=== PATIENT | female | born 1975 | race Caucasian/White ===

== ENCOUNTER → 2016-06-11 | Outpatient (CLI) | payer OTHER ==
[2015-02-20 04:26] VITALS: BP 98/55
[~2016-06-11] MED LIST: ACET500T33 PO; AMIT50TA PO; BUDE10.2 IH; CALC667C6 PO; GABA-586 PO; HYDR-2762 PO; HYDR4DIS IJ; HYDR4TAB PO; METO100T11 PO; MIRT15TA3 PO; OMEP20CA5 PO; PROAIR HFA8.5 GM IH; PSEU120T58 PO; ROPI0.252 PO; TOPI100T39 PO; [UNRECOGNIZED DRUG - CODE] IV
--- NOTE | 2016-06-11 17:39 | KCIC ---
PROCEDURE Nasal bones, three views. HISTORY Fall. FINDINGS Three views of the nasal bones are obtained. No displaced fracture is seen. There is rightward nasal septal deviation. There is no sinus opacification or air-fluid level. IMPRESSION No acute osseous finding. Electronically signed by: Aleksandra Green (Jun 11, 2016 17:39:10)
--- NOTE | 2016-06-12 08:09 | KCIC ---
PROCEDURE MRI brain without contrast. HISTORY Right-sided weakness. Migraine headaches. Memory loss and dizziness. TECHNIQUE Sagittal T1, axial T1, axial T2, axial FLAIR, axial T2 gradient, coronal T2, and diffusion imaging with ADC map were performed. COMPARISON August 14, 2013 FINDINGS The ventricles and sulci are within normal limits for age. A few scattered FLAIR hyperintensities in the supratentorial white matter, mostly in the frontal lobes bilaterally, are nonspecific. Findings may be sequela of migraine headaches or early small vessel ischemic disease. Distribution pattern is not particularly suggestive of demyelination. There is no acute intracranial hemorrhage or extra-axial fluid collection. There is no mass effect or midline shift. There is no restricted diffusion to suggest an acute infarct. Cervicomedullary junction is unremarkable. Pituitary and suprasellar region are unremarkable. Intracranial flow voids are preserved. Paranasal sinuses are clear. Mastoid air cells are opacified. Minimal edema in the subcutaneous tissues overlying the left frontal region may be to posttraumatic given history of recent fall. IMPRESSION - No acute intracranial findings. - A few scattered FLAIR hyperintensities in the supratentorial white matter, can be sequela of migraine headaches, minimal small vessel ischemic disease, or less likely demyelination. Electronically signed by: Charles Wills MD (Jun 12, 2016 08:08:09)
== END | disposition home or self-care (01) ==
LOC: KCIC MRI 16:44
PROVIDERS: ATTEND Family Medicine
DX: R53.1 Weakness (principal); Z91.81 History of falling
CPT/HCPCS: 70150; 70551

== ENCOUNTER → 2016-10-15 | Outpatient (CLI) | payer OTHER ==
[2015-02-20 04:26] VITALS: BP 98/55
[~2016-10-15] MED LIST changes: -TOPI100T39 PO; +TOPI100T42 PO
[2016-10-15 16:57] LABS: BASO # 0.1 x10^3/uL (0.0-0.2); BASO % 1 % (0-3); EOS % 3 % (0-3); HEMATOCRIT 35.4 % (36.0-47.0); LYMPH # 1.4 x10^3/uL (1.0-4.8); LYMPH % 27 % (24-48); MEAN CORPUSCULAR HEMOGLOBIN 43 pg (25-35); MEAN CORPUSCULAR HGB CONC 34 g/dL (31-37); MEAN CORPUSCULAR VOLUME 126 fL (79-100); MONO % 4 % (0-9); NEUT % 66 % (31-73); PLATELET COUNT 291 x10^3/uL (140-400); RED BLOOD COUNT 2.81 x10^6/uL (3.50-5.40); RED CELL DISTRIBUTION WIDTH 18.1 % (11.5-14.5); WHITE BLOOD COUNT 5.2 x10^3/uL (4.0-11.0)
--- NOTE | 2016-10-15 17:07 | RAD ---
Chest, 2 views, 10/15/2016: History: Preop evaluation for oral surgery Comparison is made to a study from 04/15/2015. The heart size and pulmonary vascularity are normal. No pulmonary infiltrates are seen. There is no evidence of pleural fluid IMPRESSION: No acute cardiopulmonary abnormality is detected.
[2016-10-15 17:09] LABS: ALBUMIN 3.2 g/dL (3.4-5.0); ALBUMIN/GLOBULIN RATIO 0.9 (1.0-1.7); CALCIUM 8.3 mg/dL (8.5-10.1); CREATININE 0.6 mg/dL (0.6-1.0); GFR 111.3; POTASSIUM 3.9 mmol/L (3.5-5.1); TOTAL BILIRUBIN 0.4 mg/dL (0.2-1.0); TOTAL PROTEIN 6.7 g/dL (6.4-8.2)
[2016-10-15 17:16] LABS: PLT ESTIMATE ADEQUATE (ADEQUATE)
[2016-10-15 17:17] LABS: ANISOCYTOSIS SLIGHT; OVALOCYTES PRESENT; POIKILOCYTOSIS SLIGHT
[2016-10-15 17:18] LABS: SCHISTOCYTES OCC; TEAR DROP CELLS OCC
[2016-10-15 17:48] LABS: BILIRUBIN,URINE SMALL (NEG); GLUCOSE,URINE NEGATIVE (NEG); NITRITE,URINE NEGATIVE (NEG); PROTEIN,URINE NEGATIVE (NEG-TRACE)
[2016-10-15 17:50] LABS: BACTERIA,URINE 0 /HPF (0-FEW); RBC,URINE 0 /HPF (0-2); SQUAMOUS EPITHELIAL CELL,UR MOD /LPF
== END | disposition home or self-care (01) ==
LOC: RAD 16:16
PROVIDERS: ATTEND Family Medicine
DX: Z01.818 Encounter for other preprocedural examination (principal)
CPT/HCPCS: 36415; 71020; 80053; 81001; 85025

== ENCOUNTER → 2016-11-04 | Outpatient (CLI) | payer OTHER ==
[2015-02-20 04:26] VITALS: BP 98/55
[~2016-11-04] MED LIST changes: +METO-247 PO; -METO100T11 PO
--- NOTE | 2016-11-04 17:02 | RAD ---
Examination: MRI of the right shoulder without contrast HISTORY: History of right shoulder pain for 2 years COMPARISON: None available TECHNIQUE: Multiplanar, multisequence MR imaging of the right shoulder performed without contrast FINDINGS: The long head the biceps tendon is within the bicipital groove. The attachment of the long head of biceps tendon to the superior labral anchor grossly appears intact. The attachment of the subscapularis tendon grossly appears intact. There is mild to moderate moderate increased signal identified in the supraspinatus tendon , infraspinatus tendon likely tendinosis. No evidence of full-thickness rotator cuff tear identified however, there is small amount of fluid identified in the subacromial subdeltoid bursa. Mild degenerative changes glenohumeral joint and acromioclavicular joint. The acromion is type II. The muscle bulk grossly appears unremarkable. There is obliteration of fat in the rotator interval. The visualized labrum grossly appears unremarkable. Examination is limited due to motion artifact. IMPRESSION: 1. Mild to moderate tendinosis supraspinatus and intraspinous tendons. 2. Small amount of fluid identified in subacromial subdeltoid bursa could be secondary to bursitis or bursal sided fraying of the supraspinatus tendon. Correlate for impingement. Other possibility is a small focus of full-thickness rotator cuff tear which is not apparent on these images. MR arthrogram may be useful. 3. Obliteration of fat in the rotator interval. Correlate for adhesive capsulitis. Electronically signed by: Praneeth Fatima MD (11/04/2016 4:58 PM) [id number]
== END | disposition home or self-care (01) ==
LOC: MRI 15:21
PROVIDERS: ATTEND Orthopaedic Surgery Sports Medicine
DX: M75.101 Unspecified rotator cuff tear or rupture of right shoulder, not specified as traumatic (principal); M75.81 Other shoulder lesions, right shoulder
CPT/HCPCS: 73221

== ENCOUNTER 2016-12-09 11:27 | Day surgery (SDC) | payer OTHER ==
[~2016-12-09] VITALS: Ht 152.4 cm; Wt 49.0 kg
[~2016-12-09 11:27] MED LIST changes: +AZAT50TA20 PO; +CLON1TAB3 PO; +DULO60CA6 PO; +EMLA TOP; +HYDROmorphone 2 MG/ML VIAL IV PRN; +IV RINGERS,LACTATED 1000ML 1,000 ML IV SCH; +LIDOCAINE 1% PF 2 ML VIAL. ID PRN; +MAGIC MOUTHWASH PO; +MORPHINE SULFATE 2 MG/ML DISP.SYRIN. IV PRN; +NEOM7.5C2 TP; +OMEP40CA5 PO; +ONDA8TAB9 PO; +ONDANSETRON PF 4 MG/2 ML VIAL. IV PRN; +OXYC1TAB9 PO; +PROCHLORPERAZINE 10 MG/2 ML VIAL. IV PRN; +SUMA50TA3 PO; +fentaNYL PF VIAL 100 MCG/2 ML VIAL IV PRN
[2016-12-09] MEDS ORDERED: PROPOFOL 20 ML IV ONE (11:59)
[2016-12-09] MEDS ORDERED: fentaNYL PF VIAL 100 MCG/2 ML VIAL ONE (11:59)
[2016-12-09] MEDS ORDERED: DEXAMETHASONE SOD PHOS 20 MG/5 ML VIAL. ONE (11:59)
[2016-12-09] MEDS ORDERED: ONDANSETRON PF 4 MG/2 ML VIAL. ONE (11:59)
[2016-12-09] MEDS ORDERED: LIDOCAINE 2% PF Vial for OR 5 ML VIAL. ONE (11:59)
[2016-12-09] MEDS ORDERED: ROCURONIUM 100 MG/10 ML VIAL. ONE (11:59)
[2016-12-09] MEDS ORDERED: LIDOCAINE 1% 20 ML VIAL. ONE (12:01)
[2016-12-09] MEDS ORDERED: BUPIVACAINE 0.5% 50 ML VIAL. ONE (12:02)
--- NOTE | 2016-12-09 12:18 | DISCH ---
DISCHARGE INSTRUCTIONS Condition on Discharge Condition on Discharge: Stable Activity After Discharge Activity Instructions for Disc: Other, see below Other activity instructions: arm to remain in sling until follow up Bathing Instructions: Shower-keep dressing dry Lifting Instructions after Dis: No heavy lifting Weight Bearing Status after Di: Non weight bearing Diet after Discharge Diet after Discharge: Regular Wound Incision Care Wound/Incision Care: Ice to area for comfort, Keep wound/cast CDI, Change dressing Contacting the DR. after DC Call your doctor for: Concerns you may have Follow-Up Follow up with: Sherman bangura 2wks MED LOO II, MD Dec 09, 2016 12:18
--- NOTE | 2016-12-09 12:19 | PDOC ---
BRIEF OPERATIVE NOTE Date: Dec 09, 2016 Pre-Op Diagnosis R AC DJD Post-Op Diagnosis same Procedure Performed Open R DCE Surgeon Sherman Slater Anesthesia Type: General, Regional Blood Loss 10mL Complications none MED LOO II, MD Dec 09, 2016 12:19
[2016-12-09] MEDS ORDERED: ROPIVacaine 0.5% PF 30 ML VIAL. ONE (12:37)
[2016-12-09] MEDS ORDERED: GLYCOPYRROLATE 1 MG/5 ML VIAL. ONE (13:34)
[2016-12-09] MEDS ORDERED: MIDAZOLAM HCL/PF 2 MG/2 ML VIAL. ONE (13:53)
--- NOTE | 2016-12-09 14:01 | OP ---
DATE OF SURGERY: 12/09/2016 SURGEON: Sammy Loo MD TRANSIT DEPARTMENT CLERK: Gail Slater. ANESTHESIA: General plus local plus regional nerve block. 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 PROCEDURE PERFORMED: Open right distal clavicle excision. COMPLICATIONS: None. ESTIMATED BLOOD LOSS: 10 mL. REASON FOR PROCEDURE: The patient is a very pleasant female with a complicated past medical history who I had seen and evaluated for shoulder pain in the past. She had had an injection with myself quite some time ago, which helped her pain out a lot at her shoulder. I had performed the injection at acromioclavicular joint and this gave her some good initial relief. She presented back to my clinic while after that. We had performed clinical and radiographic examination and MRI as well. After reviewing the MRI and discussing the surgery with her, she elected to proceed with the operation. DESCRIPTION OF PROCEDURE: The patient was greeted in the preoperative area by myself. Correct extremity was marked and verified. The patient was taken to the operative suite and antibiotics started en route. Once in the OR, she had successful placement of a regional nerve block by the anesthesiology team. She then underwent successful induction of general anesthetic. We transferred her gently supine to the OR table and set her up in a beach chair position maintaining her C-spine in neutral position. She had a large pad under her legs and was secured to the bed. We then proceeded to prep and drape the right upper extremity and shoulder girdle in our usual sterile fashion and conducted a standard preoperative timeout. After accomplishing this, I palpated for her AC joint and made a 5 cm incision centered over this. I dissected subcutaneous tissue with electrocautery and Xiang. I used electrocautery to incise the fascia and periosteum over her AC joint and then used a Guy to dissect around the borders of her distal clavicle. After this, I excised approximately 4 mm of bone with a saw and delivered the bony pieces completely from the operative field. We then irrigated out the operative field and closed the periosteum and capsule over AC joint with simple interrupted 0 Vicryl followed by inverted interrupted 2-0 for subcutaneous tissue and 2-0 nylon in simple interrupted fashion for skin. Prior to completion of wound closure, all counts were reported correct x 2. No complications. The patient tolerated the surgery well. At the conclusion of surgery, she was laid gently supine, transferred gently supine to the recovery room cart and taken to PACU in stable and extubated condition. Postoperative plan is to take her to PACU in stable and extubated condition. Postoperative plan is a sling x 2 weeks. We will get her started on physical therapy at that time. She will follow up with me in 2 weeks, sooner should problems arise. SAMMY LOO MD DR: TAYLOR/yashira JOB#: [id number] / [id number] JANELL
[2016-12-09 15:00] VITALS: BP 112/66
== END 2016-12-09 16:02 | disposition home or self-care (01) ==
LOC: SURG 11:27
PROVIDERS: ATTEND Orthopaedic Surgery Sports Medicine
DX: M19.011 Primary osteoarthritis, right shoulder (principal); I10 Essential (primary) hypertension; J45.909 Unspecified asthma, uncomplicated; M79.7 Fibromyalgia; F41.9 Anxiety disorder, unspecified; F17.210 Nicotine dependence, cigarettes, uncomplicated; D64.9 Anemia, unspecified; Z86.14 Personal history of Methicillin resistant Staphylococcus aureus infection; Z90.710 Acquired absence of both cervix and uterus; Z98.890 Other specified postprocedural states
CPT/HCPCS: A4215; J0690; J1100; J2250; J2405; J2704; J2795; J3010; J3490; J2001